=== PATIENT | male | born 1945 | race Caucasian/White ===

== ENCOUNTER 2018-05-09 19:34 | Emergency (ER) | payer MEDICARE, BC ==
--- NOTE | 2018-05-09 20:21 | EDM.PDOC ---
ED HPI GENERAL MEDICAL PROBLEM - General Chief Complaint: General Stated Complaint: WEAK AND PAIN Time Seen by Provider: 05/09/18 19:45 Source of Information: Reports: Patient History Limitations: Reports: Other (due to weakness) - History of Present Illness INITIAL COMMENTS - FREE TEXT/NARRATIVE: According to spouse: Pt has been having low back pain since April [id number].He was initially seen by Madison Escobar CNP and was started on tramadol for pain , but pain was not better,he was seen by Dr. Peace and was started on vicodin. Pain meds did help patient some with his pain. Any kind of movement of the mid and lower back caused pain. Also patient claims that he has been having pain in the right chest. Worse with movement or deep breathing for past 1-2 weeks now. Pt's spouse took him down to [facility] last , where he was seen by and had chest x-ray done, which showed right lung mass. He was sent home and outpatient C chest and MRI of the brain were ordered for today. claims that patient has lost 10 lbs of kesha in the past 2 wks and also has not been eating for past 2 days. He has been weak and needs help with activities of daily living. Pt rates his pain at 8/10 in his back and chest. Also pt claims that he has had nonproductive cough for past 1 year. he does smokes 1PPD for past 34 years and is still smoking. Duration: Week(s): (3 wks) Location: Reports: Chest, Back Quality: Reports: Ache Severity: Severe Improves with: Reports: None Worsens with: Reports: None Associated Symptoms: Reports: Malaise, Weakness. Denies: Confusion, Chest Pain , Cough, Diaphoresis, Fever/Chills, Headaches, Loss of Appetite, Nausea/Vomiting , Rash, Seizure, Shortness of Breath, Syncope lower back and right chest Pain Score (Numeric/FACES): 10 ED ROS GENERAL - Review of Systems Review Of Systems: See Below Constitutional: Reports: Malaise, Weakness, Decreased Appetite, Weight Loss (10 lbs ). Denies: Fever, Chills, Night Sweats, Diaphoresis HEENT: Denies: Ear Pain, Eye Discharge, Rhinitis, Throat Pain, Throat Swelling Respiratory: Reports: Pleuritic Chest Pain, Cough. Denies: Shortness of Breath , Wheezing, Sputum, Hemoptysis Cardiovascular: Denies: Chest Pain, Claudication, Dyspnea on Exertion, Edema, Lightheadedness, Syncope Endocrine: Reports: Fatigue GI/Abdominal: Reports: Constipation, Flatus. Denies: Abdominal Pain, Diarrhea, Distension, Nausea, Vomiting : Denies: Dysuria, Frequency, Hematuria Musculoskeletal: Reports: Back Pain. Denies: Joint Pain, Joint Swelling, Muscle Pain, Muscle Stiffness Skin: Denies: Bruising, Pruritis, Rash Neurological: Reports: Weakness, Gait Disturbance. Denies: Confusion, Dizziness , Headache, Numbness, Paresthesia, Syncope, Tingling Psychiatric: Denies: Agitation, Anxiety, Confusion Hematologic/Lymphatic: Denies: Anemia, Easy Bleeding ED EXAM, GENERAL - Physical Exam Exam: See Below Exam Limited By: No Limitations General Appearance: Alert, WD/WN, No Apparent Distress, Other (ill appearance) Eye Exam: Bilateral Eye: EOMI, PERRL Ears: Normal External Exam, Normal Canal, Hearing Grossly Normal, Normal TMs Ear Exam: Bilateral Ear: TM normal Nose: Normal Inspection, Normal Mucosa, No Blood Throat/Mouth: Normal Inspection, Normal Lips, Normal Teeth, Normal Gums, Normal Oropharynx, Normal Voice, No Airway Compromise Head: Atraumatic, Normocephalic Neck: Normal Inspection, Supple, Non-Tender, Full Range of Motion Respiratory/Chest: No Respiratory Distress, No Accessory Muscle Use, Decreased Breath Sounds, Other (tender and crepitus over the right lower lateral chest.) Cardiovascular: Normal Peripheral Pulses, Regular Rate, Rhythm, No Edema, No Gallop, No JVD, No Murmur, No Rub GI/Abdominal: Normal Bowel Sounds, Soft, Non-Tender, No Organomegaly, No Distention, No Abnormal Bruit, No Mass, Hepatomegaly Back Exam: Normal Inspection, Full Range of Motion, Vertebral Tenderness (in the lower lumbar ) Neurological: Alert, Oriented, CN II-XII Intact, Normal Cognition, No Motor/ Sensory Deficits Course - Vital Signs Text/Narrative:: Pt definitely appear ill. Also rates his Pain at 8/10. On Clinical exam decreases air entry right base and also tender crepitus in the right lower chest. I did go and have a look at the CT chest done today here. It does show right lower lung mass with metastatic lesion in the ribs and the vertebrae. His CBC shows elevated white count of 17.8 with normal neutrophils. His BMP shows normal electrolytes other than potassium of 3.1 , creat of 1.35 and BUN is 25. His calcium s elevated at 12.4. I did discuss the CT findings and lab findings with family. Pt does appear dehydrated from decreased oral intake and also needs good pain control and altered renal functions.He needs IV hydration and correction of potassium. Family definitely wants further evaluation of the lung mass. Considering that patient needs pulmonary and oncology consult and hospitalization for correction of dehydration and electrolyte.Also needs pain control. I did contact Dr. Peralta at [facility] and discuss patient with him. He does agree to accept patient. I have started him on IV NS with KCl at 150cc/hr and dilaudid 1mg IV for pain. Pt will be transferred by ALS ambulance to [facility]. Further care per dr. Peralta. Last Recorded V/S: Last Vital Signs Temp 97.7 F 05/09/18 19:49 Pulse 103 H 05/09/18 19:49 Resp 24 H 05/09/18 19:49 BP 156/72 H 05/09/18 19:49 Pulse Ox 96 05/09/18 19:49 - Orders/Labs/Meds Labs: Laboratory Tests 05/09/18 05/09/18 Range/Units 20:22 20:22 WBC 17.8 H D (4.0-11.0) K/uL RBC 4.30 L (4.50-6.50) M/uL Hgb 13.0 (13.0-18.0) g/dL Hct 39.4 L (40.0-54.0) % MCV 92 (76-96) fL MCH 30.2 (27.0-32.0) pg MCHC 33.0 (31.0-35.0) g/dL RDW 14.9 (11.0-16.0) % Plt Count 217 D (150-400) K/uL MPV 9.1 (6.0-10.0) fL Neut % (Auto) 69.7 (45.0-70.0) % Lymph % (Auto) 14.9 L (20.0-40.0) % [place] % (Auto) 11.9 H (3.0-10.0) % Eos % (Auto) 3.1 (1.0-5.0) % Baso % (Auto) 0.4 (0.0-0.5) % Neut # (Auto) 12.41 H (2.00-7.50) K/uL Lymph # (Auto) 2.65 (1.50-4.00) K/uL [place] # (Auto) 2.11 H (0.20-0.80) K/uL Eos # (Auto) 0.56 H (0.04-0.40) K/uL Baso # (Auto) 0.07 (0.02-0.10) K/uL Sodium 141 (136-145) mmol/L Potassium 3.1 L D (3.5-5.1) mmol/L Chloride 98 (98-107) mmol/L Carbon Dioxide 34.1 H D (21.0-32.0) mmol/L Anion Gap 12.0 (5.0-15.0) mmol/L BUN 25 D (8-26) mg/dL Creatinine 1.35 H (0.70-1.30) mg/dL Est Cr Clr Drug Dosing 52.69 mL/min Estimated GFR (MDRD) 52 L (>60) MLS/MIN BUN/Creatinine Ratio 18.5 (6-25) Glucose 113 H (74-100) mg/dL Calcium 12.4 H D (8.5-10.1) mg/dL Total Bilirubin 1.1 H D (0.0-1.0) mg/dL AST 21 (15-37) U/L ALT 18 (12-78) U/L Alkaline Phosphatase 108 (46-116) U/L Total Protein 6.4 (6.4-8.2) g/dL Albumin 2.0 L (3.4-5.0) g/dL Globulin 4.4 H (2.2-4.2) g/dL Albumin/Globulin Ratio 0.5 L (0.8-2.0) Meds: Medications Discontinued Medications Generic Name Dose Route Start Last Admin Trade Name Freq PRN Reason Stop Dose Admin Hydromorphone HCl Confirm 05/09/18 21:38 Dilaudid Administered 05/09/18 21:39 Dose 2 mg .ROUTE .STK-MED ONE Departure - Departure Time of Disposition: 10:30 Disposition: DC/Tfer to Acute Hospital 02 Condition: Fair Clinical Impression: Mass of right lung, Pain of metastatic malignancy, Dehydration, Hypokalemia - Discharge Information *PRESCRIPTION DRUG MONITORING PROGRAM REVIEWED*: Not Applicable *COPY OF PRESCRIPTION DRUG MONITORING REPORT IN PATIENT LAURA: Not Applicable Referrals: PCP,None [Primary Care Provider] - Forms: ED Department Discharge - Problem List Review Problem List Initiated/Reviewed/Updated: Yes - Assessment/Plan Assessment:: 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 hypokalemia Dehydration with altered renal function Plan: Pt definitely appear ill. Also rates his Pain at 8/10. On Clinical exam decreases air entry right base and also tender crepitus in the right lower chest. I did go and have a look at the CT chest done today here. It does show right lower lung mass with metastatic lesion in the ribs and the vertebrae. His CBC shows elevated white count of 17.8 with normal neutrophils. His BMP shows normal electrolytes other than potassium of 3.1 , creat of 1.35 and BUN is 25. His calcium s elevated at 12.4. I did discuss the CT findings and lab findings with family. Pt does appear dehydrated from decreased oral intake and also needs good pain control and altered renal functions.He needs IV hydration and correction of potassium. Family definitely wants further evaluation of the lung mass. Considering that patient needs pulmonary and oncology consult and hospitalization for correction of dehydration and electrolyte.Also needs pain control. I did contact Dr. Peralta at [facility] and discuss patient with him. He does agree to accept patient. I have started him on IV NS with KCl at 150cc/hr and dilaudid 1mg IV for pain. Pt will be transferred by ALS ambulance to [facility]. Further care per dr. Peralta.
[2018-05-09] MEDS ORDERED: HYDROmorphone 2 MG/ML SDV ONE ×2 (21:38→22:23)
[2018-05-09] MEDS ORDERED: HYDROmorphone 2 MG/ML Syringe IVPUSH ONE (22:03)
[2018-05-09] MEDS ORDERED: NS + KCl 20mEq/L 1,000 ML IV SCH (22:15)
[2018-05-09] MEDS ORDERED: Ondansetron 4 MG/2 ML SDV ONE (22:23)
== END 2018-05-09 23:10 ==
LOC: LB.ED 19:34
DX: R91.8 Other nonspecific abnormal finding of lung field (principal); R53.1 Weakness; E87.6 Hypokalemia; E86.0 Dehydration
CPT/HCPCS: 36415; 80053; 85025; 96374; 99285; J1170; J3480